=== PATIENT | female | born 1980 | race Caucasian/White ===

== ENCOUNTER → 2016-12-08 | Outpatient (CLI) | payer OTHER ==
[~2016-12-08] MED LIST: ALPR.25 PO; CLINTAB7; OXYC1TAB63 PO
== END ==
LOC: HPND 09:26
PROVIDERS: ATTEND Obstetrics & Gynecology
DX: O09.812 Supervision of pregnancy resulting from assisted reproductive technology, second trimester (principal); O99.212 Obesity complicating pregnancy, second trimester; E66.9 Obesity, unspecified; Z68.32 Body mass index [BMI] 32.0-32.9, adult; Z3A.00 Weeks of gestation of pregnancy not specified
CPT/HCPCS: 76816; 76817

== ENCOUNTER → 2017-01-05 | Outpatient (CLI) | payer OTHER | LOC: HPND 07:56 | PROVIDERS: ATTEND Obstetrics & Gynecology | DX: O09.813 Supervision of pregnancy resulting from assisted reproductive technology, third trimester (principal); O30.003 Twin pregnancy, unspecified number of placenta and unspecified number of amniotic sacs, third trimester; O99.213 Obesity complicating pregnancy, third trimester; O34.219 Maternal care for unspecified type scar from previous cesarean delivery; Z3A.00 Weeks of gestation of pregnancy not specified | CPT/HCPCS: 76816 ==

== ENCOUNTER → 2017-02-02 | Outpatient (CLI) | payer OTHER | LOC: HPND 08:00 | PROVIDERS: ATTEND Obstetrics & Gynecology | DX: O30.003 Twin pregnancy, unspecified number of placenta and unspecified number of amniotic sacs, third trimester (principal); O09.813 Supervision of pregnancy resulting from assisted reproductive technology, third trimester; O99.213 Obesity complicating pregnancy, third trimester; O34.211 Maternal care for low transverse scar from previous cesarean delivery | CPT/HCPCS: 76816 ==

== ENCOUNTER 2017-02-06 17:31 | Emergency (ER) | payer OTHER ==
[~2017-02-06 17:31] MED LIST changes: -ALPR.25 PO; -OXYC1TAB63 PO
--- NOTE | 2017-02-06 18:30 | PD ---
HPI Chief Complaint Pelvic pressure Date Seen: Feb 06, 2017 Time Seen: 18:25 Travel History International Travel<30 Days: No Contact w/Intl Traveler<30Days: No Known Affected Area: No History of Present Illness HPI 36-year-old female twin gestation here at 34 weeks and 5 days with increasing pelvic pressure. She has had intermittent occasional contractions for the past 3 days with good movement. This was last checked last Sunday and was closed. Para: 1 : 2 History Past Medical History Medical History: Denies Significant Hx Obstetric History Obstetric History Previous section Past Surgical History Narrative Surgical Family History Family History: Negative Social History Alcohol Use: No Tobacco Use: No Substance Abuse: No Allergies-Medications (Allergen,Severity, Reaction): Uncoded Allergies: unknown antibiotic (Allergy, Severe, 04/07/16) Home Meds Reported Medications Vitamins W/ Ferrous S (Clinical Nutrients Prenat 7.5-0.2 mg)1 Tab Tab 10/26/16 Review of Systems Except as stated in HPI: all other systems reviewed are Neg Physical Exam Narrative GENERAL: Well-nourished, well-developed patient. SKIN: Warm and dry. HEAD: Normocephalic and atraumatic. EYES: No scleral icterus. No injection or drainage. ENT: No nasal drainage noted. Mucous membranes pink. Airway patent. NECK: Supple, trachea midline. No JVD. CARDIOVASCULAR: Regular rate and rhythm without murmurs, gallops, or rubs. RESPIRATORY: Breath sounds equal bilaterally. No accessory muscle use. BREASTS: Bilateral exam showed no masses , no retractions, no nipple discharge. ABDOMEN/GI: Abdomen soft, non-tender, bowel sounds present, no rebound, no guarding Gravid to [-] weeks size Fundal Height: [-42] GENITOURINARY: External Genitalia: intact and normal in appearance BUS glands: [-Normal] Cervix: [-Posterior] Dilatation: Closed Effacement: [-50] Station: -4 Presentation: [-] Membranes: Intact with negative amnisure Uterine Contractions: [Occasional every 20 minutes, irregular-] FHT's: Category: [1-] Baseline: 1402 Reactive: Moderate Variability: Moderate Decels: Absent EXTREMITIES: No cyanosis or edema. BACK: Nontender without obvious deformity. No CVA tenderness. NEUROLOGICAL: Awake and alert. Motor and sensory grossly within normal limits. Five out of 5 muscle strength in all muscle groups. Normal speech. Data Data Vital Signs Reviewed: Yes MDM Plan 36-year-old twin gestation at 34-35 weeks gestation with pelvic pressure no signs of labor at this time, intact amniotic membranes Follow-up as scheduled with Dr. conner Diagnosis Diagnosis: Primary Impression: Feeling pelvic pressure during in third trimester, antepartum Additional Impressions: Intact amniotic membranes during in third trimester Twin gestation in third trimester 34 weeks gestation of Disposition: 01 DISCHARGE HOME Nikki Rosado MD Feb 06, 2017 18:30
== END 2017-02-06 19:13 | disposition home or self-care (01) ==
LOC: HOBED 17:31
DX: O26.893 Other specified pregnancy related conditions, third trimester (principal); O30.003 Twin pregnancy, unspecified number of placenta and unspecified number of amniotic sacs, third trimester; Z3A.34 34 weeks gestation of pregnancy
CPT/HCPCS: 59025; 84112

== ENCOUNTER 2017-02-14 16:45 | Emergency (ER) | payer OTHER ==
--- NOTE | 2017-02-14 17:48 | PD ---
HPI Chief Complaint gush of fluid Date Seen: Feb 14, 2017 Time Seen: 17:30 Travel History International Travel<30 Days: No Contact w/Intl Traveler<30Days: No Known Affected Area: No History of Present Illness HPI 36 y/o with twin IUP at 35.6 wks who presents with c/o gush of fluid around 1 hour ago. denies vb. reports irreg contractions. +FM Para: 1 : 5 Miscarriage: 1 : 2 History Past Medical History Narrative Medical PP depression/anxiety obesity Past Surgical History Narrative Surgical Family History Family History: Negative Social History Alcohol Use: No Tobacco Use: No Substance Abuse: No Allergies-Medications (Allergen,Severity, Reaction): Uncoded Allergies: unknown antibiotic (Allergy, Severe, 04/07/16) Home Meds Reported Medications Vitamins W/ Ferrous S (Clinical Nutrients Prenat 7.5-0.2 mg)1 Tab Tab 10/26/16 Review of Systems General / Constitutional: Weight Gain Eyes: No: Diploplia, Blurred Vision, Visual changes, Pain, Photophobia, Other HENT: No: Headaches, Vertigo, Dental Difficulties, Lightheadedness, Other Cardiovascular: No: Irregular Rhythm, Chest Pain or Discomfort, Palpitations, Tachycardia, Syncope, Varicosities, Edema, Cyanosis, Other Respiratory: No: Cough, Short of Breath, Wheezing, Other Gastrointestinal: No: Nausea, Vomiting, Diarrhea, Abdominal Pain, Hematemesis, Hematochezia, Constipation, Changes in Bowel Habits, Indigestion, Loss of Appetite, Other Genitourinary: No: Urgency, Frequency, Dysuria, Nocturia, Hematuria, Decreased Urinary Output, Oliguria, Hesitancy, Dribbling, Incontinence, Pelvic Pain, Dyspareunia, Discharge, Menorrhagia, Vaginal Bleeding, Other Musculoskeletal: No: Limited ROM, Weakness, Cramping, Edema, Pain, Other Skin: No Rash, No Itching, No Dryness, No Lumps, No Change in Pigmentation, No Change in Nails, No Alopecia, No Lesions, No Breast Lumps, No Breast Tenderness , No Breast Swelling, No Other Neurologic: No: Weakness, Dizziness, Syncope, Focal Abnormalities, Coordination Problem, Headache, Slurred Speech, Seizures, Other Psychiatric: No: Anxiety, Depression, Suicidal Ideations, Disorder of Thought, Mood Disorder, Substance Abuse, Homicidal Ideation, Other Physical Exam Narrative GENERAL: Well-nourished, well-developed patient. SKIN: Warm and dry. HEAD: Normocephalic and atraumatic. EYES: No scleral icterus. No injection or drainage. ENT: No nasal drainage noted. Mucous membranes pink. Airway patent. NECK: Supple, trachea midline. No JVD. CARDIOVASCULAR: Regular rate and rhythm without murmurs, gallops, or rubs. RESPIRATORY: Breath sounds equal bilaterally. No accessory muscle use. ABDOMEN/GI: Abdomen soft, non-tender, bowel sounds present, no rebound, no guarding Gravid to GENITOURINARY: RN exam--closed/long amnisure negative FHT's: Category: 1 Baseline: 140s x 2 Reactive: yes x 2 Variability: mod Decels: no EXTREMITIES: No cyanosis or edema. BACK: Nontender without obvious deformity. No CVA tenderness. NEUROLOGICAL: Awake and alert. Motor and sensory grossly within normal limits. Five out of 5 muscle strength in all muscle groups. Normal speech. Data Data Vital Signs Reviewed: Yes (137/87, 104) Orders Vital Signs (Adult) .ON ADMISSION (02/14/17 17:32) ^ Labor Status (02/14/17 17:32) ^ Non Stress Test (02/14/17 17:32) MDM Medical Record Reviewed: Yes Narrative Course / MDM 36 y/o with twin IUP at 35.6 wks --neg ROM by amnisure and exam --cat 1 tracing x 2 keep OB appt as scheduled labor/srom/bleeding precautions [facility] ([facility]) Diagnosis Diagnosis: Primary Impression: Twin Qualified Code: O30.043 - Dichorionic diamniotic twin in third trimester Disposition: 01 DISCHARGE HOME Lj Gordon MD Feb 14, 2017 17:48
== END 2017-02-14 18:00 | disposition home or self-care (01) ==
LOC: HOBED 16:45
DX: O26.893 Other specified pregnancy related conditions, third trimester (principal); O30.043 Twin pregnancy, dichorionic/diamniotic, third trimester; Z3A.35 35 weeks gestation of pregnancy
CPT/HCPCS: 59025; 84112

== ENCOUNTER 2017-02-20 16:28 | Inpatient (IN) | payer OTHER ==
[2017-02-20] VITALS (10 sets, daily range): BP systolic 118–156; BP diastolic 55–85; PULSE 102–110; RESP 18; TEMP 98.8; O2SAT 97–98
[2017-02-20] MEDS: LACTATED RINGER'S 1000 ML INJ 1,000 ML IV SCH ×6 (13:04→23:04)
[2017-02-20] MEDS ORDERED: ONDANSETRON HCL 4 MG/2 ML VIAL IV PUSH PRN (17:15)
[2017-02-20 17:34] LABS: AUTOMATED NEUTROPHIL # 10.7 TH/MM3 (1.8-7.7); BASOPHIL # 0.1 TH/MM3 (0-0.2); BASOPHIL % 0.4 % (0.0-2.0); EOSINOPHIL # 0.1 TH/MM3 (0-0.4); EOSINOPHIL % 0.4 % (0.0-4.0); HEMATOCRIT 36.4 % (35.0-46.0); HEMO FLAGS DIFF FINAL; LYMPH % 18.8 % (9.0-44.0); LYMPHOCYTE # 2.9 TH/MM3 (1.0-4.8); MEAN CELL VOLUME 82.5 FL (80.0-100.0); MEAN CORPUSCULAR HGB CONC 33.9 % (32.0-36.0); MONO % 9.6 % (0.0-8.0); NEUT % 70.8 % (16.0-70.0); PLATELET COUNT 234 TH/MM3 (150-450); RED BLOOD COUNT 4.41 MIL/MM3 (4.00-5.30); RED CELL DISTRIBUTION WIDTH 12.9 % (11.6-17.2); WHITE BLOOD COUNT 15.1 TH/MM3 (4.0-11.0)
[2017-02-20 17:51] LABS: BACTERIA, URINE MANY /hpf; BLOOD, URINE NEG (NEG); COMMENT (UR) CULTURE INDICATED; CULTURE IF INDICATED CULTURE INDICATED; GLUCOSE,URINE NEG (NEG); KETONE, URINE 10 mg/dL (NEG); MUCUS URINE FEW /lpf (OCC); NITRITE,URINE NEG (NEG); SQUAMOUS EPITHELIAL CELL URINE 21 /hpf (0-5); URINE COLOR YELLOW (YELLW/STRAW)
[2017-02-20 18:07] LABS: ALT (GPT) 15 U/L (10-53); ANION GAP 10 MEQ/L (5-15); AST (GOT) 13 U/L (15-37); BICARBONATE 23.8 MEQ/L (21.0-32.0); BLOOD UREA NITROGEN 5 MG/DL (7-18); CHLORIDE 106 MEQ/L (98-107); GLOMERULAR FILTRATION RATE 141 ML/MIN (>89); POTASSIUM 3.8 MEQ/L (3.5-5.1); SODIUM (NA) 140 MEQ/L (136-145)
[2017-02-20 18:10] LABS: ALKALINE PHOSPHATASE 178 U/L (45-117); TOTAL BILIRUBIN ADULT 0.5 MG/DL (0.2-1.0)
[2017-02-20] MEDS ORDERED: OXYTOCIN 30 UNITS-500ML PREMIX 500 ML IV PRN (18:15)
[2017-02-20] MEDS ORDERED: ACETAMINOPHEN 1000 MG/100 ML VIAL IV ONE ×3 (18:30→19:57)
[2017-02-20] MEDS ORDERED: OXYTOCIN 10 UNIT/ML AMP ONE ×2 (19:37→19:57)
[2017-02-20] MEDS ORDERED: LACTATED RINGER'S 1000 ML IV ONE (19:45)
[2017-02-20] MEDS: LACTATED RINGER'S 1000 ML IV SCH (19:45)
[2017-02-20] MEDS ORDERED: ceFAZolin 2 GM PREMIX 50 ML IV SCH (19:45)
[2017-02-20] MEDS ORDERED: CITRIC ACID-SODIUM CITRATE LIQ 30 ML UDC PO SCH (19:45)
[2017-02-20] MEDS ORDERED: DICLOFENAC SODIUM 37.5 MG/ML VIAL IV PUSH ONE (19:57)
--- NOTE | 2017-02-20 20:10 | MH ---
cc: ALMA URRUTIA DATE OF ADMISSION: 02/20/2017 DATE OF 1980. ADMISSION DIAGNOSES 1. Twin at 36-37 weeks. 2. with hypertension with preeclampsia. 3. Maternal obesity 4. Previous HISTORY OF PRESENT ILLNESS A 36-year-old white female para 1-0-3-1 with an EDC of 03/15/17 by known in vitro fertilization dates. Her preop course has been benign with appropriate growth. She presents today with intermittent nausea and vomiting, headache. Blood pressure in the office was 150/80 and 3+ proteinuria. She was sent to the labor and delivery for evaluation. Her laboratory studies are normal except for proteinuria. Blood pressure remains elevated and her splitting headache and failed to respond to IV Tylenol. She is now being prepared for delivery. PAST MEDICAL HISTORY/PAST SURGICAL HISTORY 1. in 2014 2. Oligohydramnios 3. induced hypertension. OBSTETRICAL HISTORY ETP x 2 and one spontaneous . MEDICATIONS Vitamins. ALLERGIES CLEOCIN TRANSFUSIONS None. SOCIAL HISTORY She is . healthcare manager. Alcohol, tobacco and drugs are none. FAMILY HISTORY Noncontributory PHYSICAL EXAMINATION GENERAL: Gravid white female. HEENT: Normal. CHEST: Clear HEART: Regular rate. BREASTS: Symmetrical ABDOMEN: Gravid, combined EFW of 6000 grams. Cervix long, thick and closed. EXTREMITIES: 2+ edema to the knees. NEUROLOGIC: Reflexes 2+ and equal. ASSESSMENT As above. PLAN She is now admitted for repeat section. Planned for IV magnesium sulfate post delivery. While in the office, I explained the procedures, the risks, benefits and complications. The patient would like to proceed. Also request sterilization for undesired fertility. MD PANCHITO Dickson/ /7:38 PM /7:59 PM CATHRYN
[2017-02-20] MEDS: MAGNESIUM SULFATE 40 GM PREMIX 1,000 ML IV SCH (20:17)
[2017-02-20] MEDS ORDERED: ZOLPIDEM TARTRATE 5 MG TAB PO PRN (20:30)
[2017-02-20] MEDS ORDERED: SIMETHICONE 80 MG CHEWABLE TAB PO PRN (20:30)
[2017-02-20] MEDS ORDERED: MEASLES, MUMPS, RUBELLA VACCINE 0.5 ML VIAL SQ ONE (20:30)
[2017-02-20] MEDS ORDERED: EPIDURAL-NO SYSTEMIC NARCOTICS PRN (20:30)
[2017-02-20] MEDS ORDERED: EPIDURAL-DO NOT ADMINISTER ANTICOAGULANTS PRN (20:30)
[2017-02-20] MEDS ORDERED: NIFEdipine 10 MG CAP PO PRN ×3 (20:30→21:00)
[2017-02-20] MEDS ORDERED: MAGNESIUM SULFATE 4 GM PREMIX 100 ML IV ONE (20:30)
[2017-02-20] MEDS ORDERED: EPIDURAL-NALOXONE HCL 0.4 MG/ML AMP IV PRN (20:30)
[2017-02-20] MEDS ORDERED: SODIUM CHLORIDE 0.9% FLUSH 10 ML FLUSH IV FLUSH PRN (20:30)
[2017-02-20] MEDS ORDERED: OXYTOCIN 30 UNITS-500ML PREMIX 500 ML IV ONE (20:30)
[2017-02-20] MEDS ORDERED: EPIDURAL-DIPHENHYDRAMINE HCL 50 MG/ML VIAL IV PUSH PRN (20:30)
[2017-02-20] MEDS ORDERED: KETOROLAC TROMETHAMINE 60 MG/2 ML (IM) VIAL IM PRN (20:30)
[2017-02-20] MEDS ORDERED: EPIDURAL-DIPHENHYDRAMINE HCL 50 MG CAP PO PRN (20:30)
[2017-02-20] MEDS ORDERED: CALCIUM GLUCONATE 10% 1 GM/10 ML VIAL IV PUSH PRN (20:30)
[2017-02-20] MEDS ORDERED: SODIUM CHLORIDE 0.9% FLUSH 5 ML FLUSH IV PRN (20:30)
[2017-02-20] MEDS ORDERED: oxyCODONE/ACETAMINOPHEN 5 MG/325 MG TAB PO PRN ×2 (20:30)
[2017-02-20] MEDS ORDERED: ONDANSETRON HCL 4 MG/2 ML VIAL IVP PRN (20:30)
[2017-02-20] MEDS ORDERED: SODIUM CHLORIDE 0.9% FLUSH 10 ML FLUSH IV FLUSH SCH (21:00)
[2017-02-20] MEDS ORDERED: SODIUM CHLORIDE 0.9% FLUSH 5 ML FLUSH IV SCH (21:00)
[2017-02-20] MEDS ORDERED: ACETAMINOPHEN 1000 MG/100 ML VIAL IV SCH (21:00)
[2017-02-20] MEDS ORDERED: MORPHINE SULFATE PF 5 MG/10 ML VIAL ONE (21:24)
[2017-02-20] MEDS ORDERED: ONDANSETRON HCL 4 MG/2 ML VIAL ONE (21:24)
[2017-02-20] MEDS ORDERED: LABETALOL HCL 100 MG/20 ML VIAL IV PUSH PRN (21:30)
[2017-02-20] MEDS ORDERED: MAGNESIUM SULFATE 4 GM PREMIX 100 ML ONE (21:37)
[2017-02-20] MEDS ORDERED: MAGNESIUM SULFATE 40 GM PREMIX 1,000 ML ONE (21:56)
[2017-02-21] VITALS (28 sets, daily range): BP systolic 51–143; BP diastolic 27–94; PULSE 84–173; RESP 18–20; TEMP 98.1–98.4
[2017-02-21] MEDS: ACETAMINOPHEN 1000 MG/100 ML VIAL IV SCH ×2 (03:00→10:54)
[2017-02-21 06:00] LABS: AUTOMATED NEUTROPHIL # 12.5 TH/MM3 (1.8-7.7); BASOPHIL % 0.2 % (0.0-2.0); EOSINOPHIL % 0.1 % (0.0-4.0); HEMATOCRIT 29.1 % (35.0-46.0); HEMO FLAGS DIFF FINAL; LYMPH % 13.8 % (9.0-44.0); LYMPHOCYTE # 2.3 TH/MM3 (1.0-4.8); MEAN CORPUSCULAR HEMOGLOBIN 27.9 PG (27.0-34.0); MEAN CORPUSCULAR HGB CONC 33.6 % (32.0-36.0); MONO % 10.6 % (0.0-8.0); NEUT % 75.3 % (16.0-70.0); PLATELET COUNT 173 TH/MM3 (150-450); RED BLOOD COUNT 3.51 MIL/MM3 (4.00-5.30); RED CELL DISTRIBUTION WIDTH 12.9 % (11.6-17.2); WHITE BLOOD COUNT 16.7 TH/MM3 (4.0-11.0)
[2017-02-21 06:20] LABS: BICARBONATE 25.1 MEQ/L (21.0-32.0); POTASSIUM 3.7 MEQ/L (3.5-5.1)
[2017-02-21] MEDS: LACTATED RINGER'S 1000 ML INJ 1,000 ML IV SCH ×3 (08:00→17:52)
[2017-02-21] MEDS ORDERED: ACETAMINOPHEN/HYDROcodone 325 MG/5 MG TAB PO PRN (08:15)
[2017-02-21] MEDS: ACETAMINOPHEN/HYDROcodone 325 MG/5 MG TAB PO PRN ×3 (08:34→19:06)
[2017-02-21] MEDS: LACTATED RINGER'S 1000 ML IV SCH (09:05)
[2017-02-21] MEDS: SERTRALINE HCL 100 MG TAB PO SCH (09:38)
[2017-02-21] MEDS: KETOROLAC TROMETHAMINE 30 MG/ML (IVP) VIAL IV PUSH PRN ×2 (10:17→23:03)
[2017-02-21] MEDS ORDERED: LACTATED RINGER'S 1000 ML INJ 500 ML IV ONE (12:00)
[2017-02-21] MEDS: MAGNESIUM SULFATE 40 GM PREMIX 1,000 ML IV SCH (17:56)
[2017-02-21] MEDS: IBUPROFEN 600 MG TAB PO PRN (19:05)
[2017-02-21] MEDS: DOCUSATE SODIUM 50 MG/SENNA 8.6 MG TAB PO PRN (23:03)
[2017-02-21] MEDS ORDERED: oxyCODONE/ACETAMINOPHEN 5 MG/325 MG TAB PO PRN (23:30)
[2017-02-22] MEDS: oxyCODONE/ACETAMINOPHEN 5 MG/325 MG TAB PO PRN ×4 (03:52→22:46)
[2017-02-22] MEDS ORDERED: DIPHTH/TETANUS/ACEL PERTUSSIS (BOOSTER) 0.5 ML VIAL/PFS IM ONE (09:00)
[2017-02-22] MEDS: IBUPROFEN 600 MG TAB PO PRN ×2 (09:00→22:46)
[2017-02-22] MEDS: SERTRALINE HCL 100 MG TAB PO SCH (09:00)
[2017-02-22] MEDS: KETOROLAC TROMETHAMINE 30 MG/ML (IVP) VIAL IV PUSH PRN (14:44)
--- NOTE | 2017-02-22 17:59 | MP ---
cc: ALMA URRUTIA DATE OF SURGERY: 02/20/2017. PREOPERATIVE DIAGNOSIS: 1. Twin at 36/37 weeks. 2. -induced hypertension, severe preeclampsia. 3. Previous 4. Maternal obesity. POSTOPERATIVE DIAGNOSIS: 1. Twin at 36/37 weeks. 2. -induced hypertension, severe preeclampsia. 3. Previous 4. Maternal obesity. 5. Delivered. OPERATIVE PROCEDURE PERFORMED: Repeat low transverse section. ANESTHESIA: Spinal SURGEON: Alma Urrutia MD EXPORT TRAFFIC DEPARTMENT MANAGER: Ankita. ESTIMATED BLOOD LOSS: About 800 cc. FLUIDS: One liter of crystalloid. OBJECTIVE FINDINGS: Following induction of adequate spinal anesthesia, the patient was prepped and draped supine on the operating table in the dorsal lithotomy position in the usual sterile fashion with the bladder being drained via Stone catheterization. The abdomen was opened using a Pfannenstiel's incision using a knife to cut down through the skin and subcutaneous fashion. The fascia was opened transversely and stripped from the muscles. The rectus muscle was split in the midline and the peritoneum opened sharply without incident. The bladder flap was taken down sharply and retracted inferiorly with a Delfino blade. The lower uterine segment was incised transversely with a knife and extended bluntly. Membranes were ruptured. The "A" baby was in the transverse position, rotated to breech and delivered as a lópez breech sacral right with gentle guidance and fundal pressure the delivery progressed to the shoulder blades, each arm reduced and the head easily slipped through the wound. The mouth was suctioned. The cord was clamped and cut and the baby was passed to the awaiting team, a viable vigorous female Apgars 8 and 9 and weight 7 pounds, 8 ounces. The second sac was now palpated. The baby was footling breech. The membranes were ruptured. The feet were grasped and gently tractioned. Delivery progressed to the shoulder blade. Each arm reduced. Head easily slipped through the wound. Mouth suctioned. Cord clamped and cut. The baby was passed to the awaiting team. "B" baby was 7 pounds 8 ounces, Apgars 8 and 8. Cord blood was now collected and separately tagged from each "placenta". The uterine cavity was wiped clean with laps and the uterus exteriorized. The abdomen was then closed in two layers with running suture, first with a running locking stitch of #0 Vicryl and the second a running imbricating suture of #0 Vicryl. Posterior inspection of the uterus, tubes and ovaries was normal. There were a few small fibroids. The uterus was replaced in the abdominal cavity. Irrigation was performed. No bleeding was evident. The bladder flap was closed with a running stitch of #3-0 Vicryl. All lap structures were removed. Counts were correct. The anterior peritoneum was closed with a running stitch of 2-0 Vicryl, the fascia closed with a running stitch of #1 PDS corner to midline and tied, subcutaneous closed with 3-0 Vicryl running and the skin with running 3-0 Monocryl subcuticular. Dermabond applied. All counts were correct. The patient was awake and taken to the recovery room in good condition. MD PANCHITO Dickson/MARTA /9:15 PM /5:40 PM CATHRYN
[2017-02-22] MEDS: ONDANSETRON ODT 4 MG TAB PO PRN (21:45)
[2017-02-23] MEDS: ALPRAZolam 0.25 MG TAB PO PRN ×2 (00:43→08:40)
[2017-02-23] MEDS: oxyCODONE/ACETAMINOPHEN 5 MG/325 MG TAB PO PRN ×2 (04:41→10:17)
[2017-02-23] MEDS: IBUPROFEN 600 MG TAB PO PRN ×2 (04:41→10:18)
[2017-02-23] MEDS ORDERED: ALPR.25 PO (08:13)
[2017-02-23] MEDS ORDERED: OXYC1TAB63 PO (08:13)
--- NOTE | 2017-02-23 08:14 | HHI.DCPOC ---
Discharge Care Plan Report Symptoms to Your Doctor -Temperate above 100.5 degrees -Redness, of incision or excessive or foul smelling drainage -Unusual pain or calf pain -Increased vaginal bleeding -Painful or difficulty urinating -Feelings of extreme sadness or anxiety after 2 weeks Goals to Promote Your Health * To prevent worsening of your condition and complications * To maintain your health at the optimal level Directions to Meet Your Goals Take your medications as prescribed Follow your dietary instruction Follow activity as directed Ensure plenty of rest for recovery Drink fluids for hydration Keep your appointments as scheduled Take your immunizations and boosters as scheduled If your symptoms worsen call your PCP, if no PCP go to Urgent Care Center or Emergency Room Smoking is Dangerous to Your Health. Avoid second hand smoke Call the 24-hour crisis hotline for domestic abuse at Uriel Hurtado MD Feb 23, 2017 08:14
[2017-02-23] MEDS: ONDANSETRON ODT 4 MG TAB PO PRN (08:40)
[2017-02-23] MEDS: SERTRALINE HCL 100 MG TAB PO SCH (08:40)
[2017-02-23] MEDS: DOCUSATE SODIUM 50 MG/SENNA 8.6 MG TAB PO PRN (08:43)
--- NOTE | 2017-02-27 22:34 | MD ---
cc: ALMA URRUTIA ADMISSION DATE: 02/20/2017 DISCHARGE DATE: 02/23/2017 Alma Urrutia MD: ADMISSION DIAGNOSES 1. Twin at 36-37 weeks. 2. induced hypertension, severe preeclampsia. 3. Maternal obesity. 4. Previous . DISCHARGE DIAGNOSES 1. Twin at 36-37 weeks. 2. induced hypertension, severe preeclampsia. 3. Maternal obesity. 4. Previous . 5. Delivered. PROCEDURE Repeat low transverse section on 02/20/2017. HISTORY OF PRESENT ILLNESS The patient 36-year-old white female para 1-0-1-1 with an EDC of 03/15/2017 by known in vitro fertilization date. Her preop course was benign except for maternal obesity. On the day of admission she developed headache, nausea and vomiting, increasing abdominal discomfort and was admitted to hospital. Laboratory studies were pertinent for proteinuria and persistent elevated blood pressure with headache. On the evening of 02/20/2017 she underwent a repeat low section with delivery of viable twin girls, A baby 7 pounds 8 ounces, Apgars were 8 and 9; B baby female, weight 7 pounds 8 ounces, Apgars 8 and 8. she received mag sulfate 24 hours. Gradual advancement of diet and activity. Discharged home in excellent condition on 02/23/2017. MEDICATIONS She will resume her routine meds at home. 1. Her vitamins. 2. Her Zoloft 100 milligrams daily. 3. Zofran ODT as needed. She was given prescription for: 1. Percocet 5 one to two p.o. q.4h as needed for pain, #60. 2. Xanax 0.25 milligrams p.o. q.6h as needed for anxiety, #30. Return to see me in one week. She was advised NPV, light activity, no driving. MD PANCHITO Dickson/KK /8:19 AM /10:24 PM
== END 2017-02-23 12:19 | disposition home or self-care (01) | DRG 765 ==
LOC: H2EA 16:28 → OBSVTOIN 19:34 → H1EA 02-21 20:30
PROVIDERS: ADMIT Obstetrics & Gynecology; ATTEND Obstetrics & Gynecology
PROC: 10D00Z1 Extraction of Products of Conception, Low, Open Approach (ICD-10-PCS; principal; 2017-02-20)
DX: O34.211 Maternal care for low transverse scar from previous cesarean delivery (principal); O30.043 Twin pregnancy, dichorionic/diamniotic, third trimester; O14.14 Severe pre-eclampsia complicating childbirth; Z37.2 Twins, both liveborn; E66.9 Obesity, unspecified; Z3A.36 36 weeks gestation of pregnancy; O99.214 Obesity complicating childbirth; O32.8XX0 Maternal care for other malpresentation of fetus, not applicable or unspecified; D25.9 Leiomyoma of uterus, unspecified
CPT/HCPCS: 59025; 80048; 80053; 81001; 82248; 83735; 85025; 86850; 86900; 86901; 87086; J0131; J0690; J1130; J1200; J1885; J2274; J2405; J2590; J3475; J7120